=== PATIENT | male | born 1930 ===

== ENCOUNTER 2017-11-21 06:33 | Day surgery (SDC) | payer MEDICARE ==
[2017-11-17 11:49] VITALS: BMI 24.7
[2017-11-21] MEDS ORDERED: Iohexol 350mgl/ml 50 ML ONE (07:13)
[2017-11-21] MEDS ORDERED: Lidocaine 2% Inj (20ml) ONE (07:13)
[2017-11-21] MEDS ORDERED: Phenylephrine 10 mg/ml Inj ONE (07:13)
[2017-11-21] MEDS ORDERED: Verapamil 2 ML ONE (07:13)
[2017-11-21] MEDS ORDERED: Iodixanol 320 MG/ML 100 ML BOTTLE IV ONE (07:13)
[2017-11-21] MEDS ORDERED: Iodixanol 320 MG/ML 200 ML BOTTLE IV ONE (07:14)
[2017-11-21] MEDS ORDERED: Nitroglycerin 50mg in D5W 50 MG/250 ML BOTTLE IV ONE (07:14)
[2017-11-21 07:16] LABS: BASO # 0.01 K/mm3 (0.0-2.0); BASO % 0.2 % (0.0-3.0); EOS # 0.1 (0.0-0.7); EOS % 1.7 % (1.5-5.0); GRAN # 2.88 (1.4-6.5); GRAN % 60.8 % (50.0-68.0); HEMOGLOBIN 13.4 g/dL (14.0-18.0); LYMPH # 1.3 (1.2-3.4); LYMPH % 27.2 % (22.0-35.0); MEAN CELL VOLUME 87.2 fl (80.0-105.0); MEAN CORPUSCULAR HEMOGLOBIN 29.5 pg (25.0-35.0); MEAN CORPUSCULAR HGB CONC 33.8 g/dl (31.0-37.0); MEAN PLATELET VOLUME 9.9 fl (7.0-11.0); MONO # 0.5 (0.1-0.6); MONO % 10.1 % (1.0-6.0); RBC 4.54 10^6/uL (3.5-6.1); RED CELL DISTRIBUTION WIDTH 13.3 % (11.5-14.5); WHITE BLOOD COUNT 4.7 10^3/ul (4.5-11.0)
[2017-11-21 07:36] LABS: BLOOD UREA NITROGEN 28 mg/dL (7-21); CALCIUM 9.4 mg/dL (8.4-10.5); GFR AFRICAN-AMERICAN > 60; GFR NON-AFRICAN AMERICAN > 60; HDL CHOLESTEROL 42 mg/dL (29-60)
[2017-11-21 07:46] LABS: LDL CHOLESTEROL 79 mg/dL (0-129)
[2017-11-21 07:49] LABS: INR 1.11 (0.93-1.08); PARTIAL THROMBOPLASTIN TIME 31.9 Seconds (25.1-36.5); PROTHROMBIN TIME 12.8 SECONDS (9.4-12.5)
[2017-11-21 07:54] VITALS: RESP 18
[2017-11-21] MEDS: Midazolam 2 MG/2 ML VIAL ONE (08:16)
[2017-11-21] MEDS ORDERED: Adenosine 90 mg/30mL IV ONE (08:45)
[2017-11-21 10:09] VITALS: TEMP 97.5
[2017-11-21 11:01] LABS: ALBUMIN 3.7 g/dL (3.0-4.8)
--- NOTE | 2017-11-21 11:28 | CARD ---
APPROVED REPORT EKG Measurement Heart [id number] <Conclusion> Normal sinus rhythm Possible Left atrial enlargement Left ventricular hypertrophy Abnormal ECG
[2017-11-21 13:45] VITALS: O2SAT 99
[2017-11-21 14:39] VITALS: BP 142/65; PULSE 71
--- NOTE | 2017-12-02 07:29 | CARDCATH ---
PROCEDURE DATE: 11/21/2017 INDICATIONS: Mr. Saenz is an 87-year-old male with history of hypertension and dyslipidemia, referred to ct for evaluation of severe aortic stenosis with recurrent episodes of syncope. He was therefore brought to the central lab technician for further evaluation and treatment of aortic stenosis. PROCEDURES PERFORMED: Complete heart catheterization with selective left and right coronary angiogram, right heart catheterization with hemodynamics and saturations, simultaneous left ventricular aortic gradient for assessment of aortic stenosis, 6-Bangladeshi right femoral arterial access, fractional flow reserve of ostial right coronary artery, physiologically nonsignificant at 0.9. Fractional flow reserve of left circumflex, obtuse marginal, physiologically nonsignificant at 0.81 and 0.82. TECHNIQUES OF PROCEDURE: After obtaining informed consent, the patient was brought to the cardiac cath suite in post-absorptive and non-sedated state. The patient was prepped and draped in the usual sterile fashion. A 2% lidocaine was used for infiltration of anesthesia. Using modified Seldinger technique, a 6-Bangladeshi sheath was introduced into the right femoral artery and 7-Bangladeshi was introduced into the right femoral vein. Subsequently, under fluoroscopic guidance with the balloon inflated, the pulmonary capillary wedge catheter was advanced to the IVC into the RA, RPC in wedge position. Hemodynamics and saturations were obtained. Subsequently under fluoroscopic guidance over a J-wire, a JL4 and JR4 diagnostic catheters were used to engage the left and right coronary system. The angiograms were obtained in different orthogonal views. CORONARY ANATOMY: Left main is a large-sized vessel with 2 tandem lesions approximately 40% to 50% stenosis in the body of the left main. LAD large-sized vessel has a mid 55% stenosis at the bifurcation of the second diagonal branch. First diagonal has ostial 90% stenosis, a small-sized vessel. Left circumflex is a large-sized vessel, runs in the AV groove, gives off a large obtuse marginal branch. Past the obtuse marginal, left circumflex has a moderate 55% stenosis. Obtuse marginal has a mid 70% stenosis. Right coronary artery large-sized vessel, has an ostial 55% stenosis with some pressure damping noted on engagement of the catheter. After obtaining the coronary angiogram, because of moderate multiple lesions, physiological assessment with the FFR of the RCA was done, which was nonsignificant at 0.92. Subsequently, FFR of the obtuse marginal and left circumflex was done, which was physiologically nonsignificant at 0.82 and 0.81. After obtaining the coronary angiogram and the right heart cath, the aortic valve was crossed using the AL1 with a straight-tipped guidewire, Oscar pigtail catheter was advanced into the LV and simultaneous LV-AO gradients were noted. Cardiac output using the thermodilution method was calculated to be 4.12 with a cardiac index of 2.1 L/min/m2 area. [id number] mean transaortic gradients were 60 mmHg with aortic valve area calculated at 0.48 cm2. Hemodynamics of the right heart RA pressure mean was 8. RV end diastolic was 15. PA pressures were 30/15 with a mean of 20. Pulmonary capillary wedge pressure was 15. IMPRESSION: Moderate 2-vessel disease, physiologically nonsignificant; severe aortic stenosis with normal pulmonary pressures. RECOMMENDATIONS: The patient is to undergo further evaluation for possible transcutaneous aortic valve replacement. Francisco Judge MD
== END 2017-11-21 16:00 | disposition home or self-care (01) ==
LOC: CATH 06:33
PROVIDERS: ATTEND Internal Medicine Interventional Cardiology
DX: I35.0 Nonrheumatic aortic (valve) stenosis (principal); R06.09 Other forms of dyspnea; I10 Essential (primary) hypertension; E78.5 Hyperlipidemia, unspecified
CPT/HCPCS: 36415; 80048; 80061; 82040; 83880; 85025; 85610; 85730; 86850; 86900; 93005; 93460; 93571; 93572; 99152; 99153; C1760; C1769 ×4; C1887 ×2; C1894; C2629; J0153; J1644 ×2; J2250; J3010; J7030; Q9966; Q9967